=== PATIENT | female | born 1945 | race Caucasian/White ===

== ENCOUNTER 2021-03-07 10:30 | Emergency (ER) | payer MEDICARE, OTHER ==
[2021-03-07] MEDS ORDERED: Take Home: Amoxicillin/Clavulanate K 875-125 MG Tab, 2 Tab Pack PO ONE (11:00)
--- NOTE | 2021-03-07 11:05 | EDM.PDOC ---
ED HPI GENERAL MEDICAL PROBLEM - General Chief Complaint: General Stated Complaint: Earache Time Seen by Provider: 03/07/21 11:06 Source of Information: Reports: Patient History Limitations: Reports: No Limitations - History of Present Illness INITIAL COMMENTS - FREE TEXT/NARRATIVE: This patient is a 75 year old female that presents to the ER. Patient reports that yesterday she started with left earache, then left face pain, congestion in sinus. She reports low grade fever this morning. Patient denies headache, dental pain, n, v, d, cough, chest pain, shortness of breath, rashes. Patient is alert and oriented. Onset Date: 03/06/21 Location: Reports: Face Quality: Reports: Pressure Severity: Mild Improves with: Reports: None Worsens with: Reports: None Associated Symptoms: Reports: Fever/Chills. Denies: Confusion, Chest Pain, Cough, cough w sputum, Diaphoresis, Headaches, Loss of Appetite, Malaise, Nausea/Vomiting, Rash, Seizure, Shortness of Breath, Syncope, Weakness - Related Data Allergies Allergy/AdvReac Type Severity Reaction Status Date / Time acetaminophen [From Percocet] Allergy Cannot Verified 05/16/16 09:25 Remember oxycodone HCl [From Percocet] Allergy Cannot Verified 05/16/16 09:25 Remember Home Meds: Home Meds Cholecalciferol (Vitamin D3) [Vitamin D] 1,000 unit PO DAILY 05/18/15 [History] Flaxseed Oil [Flax Oil] 2 tbsp PO DAILY 05/18/15 [History] Vitamin B Complex 1 cap PO DAILY 05/18/15 [History] Red Yeast Rice 1 cap PO DAILY 05/19/15 [History] Amoxicillin/Potassium Clav [Augmentin 875-125 Tablet] 1 each PO BID #18 tablet 03/07/21 [Rx] ED ROS GENERAL - Review of Systems Review Of Systems: See Below Constitutional: Reports: No Symptoms HEENT: Reports: Ear Pain (left), Sinus Problem (left maxillary sinus pain, pressure. Congestion) Respiratory: Reports: No Symptoms Cardiovascular: Reports: No Symptoms Endocrine: Reports: No Symptoms GI/Abdominal: Reports: No Symptoms : Reports: No Symptoms Musculoskeletal: Reports: No Symptoms Skin: Reports: No Symptoms Neurological: Reports: No Symptoms Psychiatric: Reports: No Symptoms Hematologic/Lymphatic: Reports: No Symptoms Immunologic: Reports: No Symptoms ED EXAM, GENERAL - Physical Exam Exam: See Below Exam Limited By: No Limitations General Appearance: Alert, WD/WN, No Apparent Distress Eye Exam: Bilateral Eye: Normal Inspection, PERRL Ears: Normal External Exam, Normal Canal, Hearing Grossly Normal, Normal TMs, Other (hearing aids not present) Ear Exam: Bilateral Ear: Auricle Normal, Canal Normal, TM normal, Other (Cerumen in canals, but not occluding) Nose: Normal Inspection, Normal Mucosa, No Blood Throat/Mouth: Normal Inspection, Normal Lips, Normal Teeth, Normal Gums, Normal Oropharynx, Normal Voice, No Airway Compromise Head: Atraumatic, Normocephalic, Sinus Tenderness (left maxillary). No: Facial Swelling, Facial Tenderness Neck: Normal Inspection, Supple, Non-Tender, Full Range of Motion Respiratory/Chest: No Respiratory Distress, Lungs Clear, Normal Breath Sounds, No Accessory Muscle Use Cardiovascular: Normal Peripheral Pulses, Regular Rate, Rhythm, No Edema, No Gallop, No JVD, No Murmur, No Rub Peripheral Pulses: 2+: Radial (L), Radial (R), Posterior Tibial (L), Posterior Tibial (R) GI/Abdominal: Soft, Non-Tender Back Exam: Normal Inspection Extremities: Normal Inspection, Normal Range of Motion, Non-Tender, No Pedal Edema, Normal Capillary Refill Neurological: Alert, Oriented, Normal Cognition, No Motor/Sensory Deficits Psychiatric: Normal Affect, Normal Mood Skin Exam: Warm, Dry, Intact, Normal Color, No Rash Lymphatic: No Adenopathy Course - Vital Signs Last Recorded V/S: Last Vital Signs Temp 100.2 F 03/07/21 10:30 Pulse 85 03/07/21 10:30 Resp 20 03/07/21 10:30 BP 157/81 H 03/07/21 10:30 Pulse Ox 96 03/07/21 10:30 - Orders/Labs/Meds Meds: Medications Discontinued Medications Generic Name Dose Route Start Last Admin Trade Name Carmen PRN Reason Stop Dose Admin Amoxicillin/Clavulanate Potassium 1 packet 03/07/21 11:00 Take Home: Amoxicillin/Clavulanate K 875-125 Mg Tab, 2 Tab Pack PO 03/07/21 11:01 ONETIME ONE Departure - Departure Time of Disposition: 11:01 Disposition: Home, Self-Care 01 Condition: Fair Clinical Impression: Acute sinusitis Qualifiers: Sinusitis location: maxillary Recurrence: non-recurrent Qualified Code(s): J01.00 - Acute maxillary sinusitis, unspecified - Discharge Information *PRESCRIPTION DRUG MONITORING PROGRAM REVIEWED*: Not Applicable *COPY OF PRESCRIPTION DRUG MONITORING REPORT IN PATIENT SUN: Not Applicable Prescriptions: Amoxicillin/Potassium Clav [Augmentin 875-125 Tablet] 1 each PO BID #18 tablet Instructions: Sinusitis, Adult, [id number] Forms: ED Department Discharge Additional Instructions: Followup with your primary care provider Followup in clinic for ear cleaning and wash out Return to the ER for worsening of condition or any emergent concerns Rest Tylenol/Motrin for fever or pain Over the counter medications such as Afrin (only use for 3 days, longer will cause worsening of symptoms), Mucinex, Saline Rinses Augmenting 875mg 1 pill twice a day for 10 days total #2 given in ER, #18 sent to [facility] S[facility] Event Note (ED) - Focused Exam Vital Signs: Vital Signs Temp Pulse Resp BP Pulse Ox 03/07/21 10:30 100.2 F 85 20 157/81 H 96 - Assessment/Plan Plan: PLEASE SEE RN NOTE FOR PFSH
[2021-03-07 11:06] VITALS: BP 157/81; PULSE 85
[2021-03-07] MEDS ORDERED: Ondansetron 4 MG/2 ML SDV IVPUSH STA (12:11)
== END 2021-03-07 11:30 | disposition home or self-care (01) ==
LOC: CC.ED 10:30
DX: J01.00 Acute maxillary sinusitis, unspecified (principal); Z88.5 Allergy status to narcotic agent; Z88.8 Allergy status to other drugs, medicaments and biological substances
CPT/HCPCS: 99283; A9270

== ENCOUNTER → 2023-07-05 | Day surgery (SDC) | payer MEDICARE, OTHER ==
[~2023-07-05] MED LIST: Ketamine 200 MG/20 ML MDV ONE; fentaNYL 50 MCG/ML SDV ONE
[2023-07-05] MEDS: Lactated Ringers 1,000 ML IV SCH (09:18)
[2023-07-05 11:36] VITALS: BP 120/64; PULSE 71
== END ==
LOC: CC.SDS 16:57
PROVIDERS: ATTEND Surgery
DX: Z12.11 Encounter for screening for malignant neoplasm of colon (principal); K63.5 Polyp of colon; E78.00 Pure hypercholesterolemia, unspecified; M81.0 Age-related osteoporosis without current pathological fracture; E55.9 Vitamin D deficiency, unspecified; Z88.5 Allergy status to narcotic agent; Z79.82 Long term (current) use of aspirin; Z79.899 Other long term (current) drug therapy
CPT/HCPCS: 93005; J3010; J3490; J7120